=== PATIENT | male | born 2000 | race Caucasian/White ===

== ENCOUNTER 2025-03-23 12:36 | Emergency (ER) | payer MEDICAID ==
[~2025-03-23] VITALS: Ht 188 cm; Wt 79.4 kg
[2025-03-23 13:06] VITALS: BP 119/78; TEMP 98.2
[2025-03-23 13:35] VITALS: O2SAT 99
== END 2025-03-23 13:37 | disposition home or self-care (01) ==
LOC: ER 12:40
DX: K12.0 Recurrent oral aphthae (principal)

== ENCOUNTER 2025-09-06 22:41 | Emergency (ER) | payer MEDICAID ==
[~2025-09-06] VITALS: Ht 190.5 cm; Wt 81.6 kg
[2025-09-07 00:46] VITALS: BP 135/92; TEMP 99.3; O2SAT 100
== END 2025-09-07 00:46 | disposition home or self-care (01) ==
LOC: ER 22:45
DX: S00.03XA Contusion of scalp, initial encounter (principal); Y04.0XXA Assault by unarmed brawl or fight, initial encounter; Y93.89 Activity, other specified; Y92.89 Other specified places as the place of occurrence of the external cause; Y99.9 Unspecified external cause status
CPT/HCPCS: 70450-TC; 70486-TC